=== PATIENT | male | born 1995 | race Caucasian/White ===

== ENCOUNTER 2021-01-21 20:55 | Emergency (ER) | payer MEDICAID, SELFPAY ==
[2021-01-21 21:29] VITALS: BP 135/88; PULSE 92; RESP 18; TEMP 36.6; O2SAT 100; BMI 21.2
[2021-01-21] MEDS: Ketorolac Tromethamine 15 MG/ML VIAL IM (22:58)
[2021-01-21] MEDS: Acetaminophen 325 MG TABLET 975 MG PO (22:58)
--- NOTE | 2021-01-21 23:36 | ED.DENTAL ---
HPI - Dental/Oral General Chief complaint: Dental/Oral Stated complaint: wisdom teeth pain Time Seen by Provider: 01/21/21 22:48 Source: patient Mode of arrival: ambulatory History of Present Illness HPI Narrative: 25-year-old male who presents with significant dental pain after undergoing a right lower wisdom tooth extraction as well as 2 other molars and he states he was discharged without any pain medication. He denies any excessive bleeding and has avoided all maneuvers that would increase negative pressure. He denies any nausea, vomiting, fever, chills. Related Data Previous Rx's Medication Instructions Recorded ketorolac 10 mg tablet 10 mg PO Q6H PRN 5 Days #20 tab 01/21/21 Allergies Allergy/AdvReac Type Severity Reaction Status Date / Time No Known Allergies Allergy Verified 01/21/21 21:37 [No Known Allergies*] Review of Systems Review of Systems: Pertinent positives and negatives as stated in HPI 10 point review of systems is otherwise negative. PMFSH Past Medical History Source: nursing notes reviewed Medical History No known health problems Surgical History No history of previous surgery Social History Social History Advance Directives: No Advance Directives Information Provided: Yes Physical Exam Vital Signs: Vital Signs: Last Vital Signs Temp 97.8 F 01/21/21 21:29 Pulse 92 01/21/21 21:29 Resp 18 01/21/21 21:29 BP 135/88 01/21/21 21:29 Pulse Ox 100 01/21/21 21:29 Body Mass Index 21.2 VITAL SIGNS: Reviewed. GENERAL: Well developed, well nourished, in no acute distress. HEAD: Normocephalic/atraumatic EYES: PERRLA, EOMI OROPHARYNX: no oral lesions noted, posterior pharynx clear, no trismus, obvious dental extraction at the right lower posterior wisdom tooth and molar area without obvious active bleeding NECK: Supple, no adenopathy LUNGS: Normal breath sounds. SpO2<100> CARDIOVASCULAR: Regular rate and rhythm without noted murmurs ABDOMEN: Soft, non-tender, non-distended with bowel sounds. NEUROLOGIC: Alert and oriented x 4. Course Course Course Narrative: 25-year-old male with history and clinical presentation consistent with significant dental pain after multiple tooth extraction. Patient was provided with combination analgesics and on re-evaluation has had good resolution of his pain. Discharge Plan Discharge Clinical Impression: Status post wisdom tooth extraction Patient Disposition: Home, Self-Care Instructions: Tooth Extraction (DC) Additional Instructions: Tylenol 1000 mg, orally, every 6 hours as needed for pain control. Do not exceed 4000 mg within 24 hours. Apply ice to unexposed skin at the right lower jaw for 5-10 minutes, 3 to 4 times a day for additional pain relief. Do not smoke, use straws, or any maneuver that will increase negative pressure within your mouth as this may remove the necessary clot that has formed within the tooth socket. Follow-up with your dentist in the morning for re-evaluation and further outpatient management. Return to the ER for acute worsening of symptoms. Prescriptions: New ketorolac 10 mg tablet 10 mg PO Q6H PRN (Reason: pain) 5 Days Qty: 20 RF: 0 Referrals: Physician,None [Primary Care Provider] - 2 days
== END 2021-01-21 23:52 | disposition home or self-care (01) ==
PROVIDERS: Emergency Provider Student in an Organized Health Care Education/Training Program
DX: K08.89 Other specified disorders of teeth and supporting structures (principal); Z98.890 Other specified postprocedural states
CPT/HCPCS: 96372; 99284; J1885